=== PATIENT | female | born 1985 | race Hispanic/Latino ===

== ENCOUNTER 2017-07-30 22:45 | Emergency (ER) | payer SELFPAY ==
[2017-07-30] MEDS ORDERED: NA CHLORIDE 0.9% 1,000 ML ONE (23:30)
[2017-07-30] MEDS ORDERED: MORPHINE 4 MG/ML SYR ONE (23:30)
[2017-07-30] MEDS ORDERED: ONDANSETRON 4 MG/2 ML VIAL ONE (23:30)
[2017-07-30 23:47] LABS: Urine Blood NEGATIVE (NEG); Urine Glucose NEGATIVE (NEG); Urine Protein NEGATIVE (NEG)
[2017-07-30 23:48] LABS: Absolute Lymphocytes (CBC) 3.2 K/uL (0.7-4.9); Absolute Monocytes 0.5 K/uL (0.1-1.3); Absolute Neutrophil 3.8 K/uL (1.8-8.0); Basophils % 0.4 % (0-1.3); Eosinophils % 4.1 % (0-4.4); Hematocrit 42.4 % (36.0-45.0); Lymphocytes % 40.6 % (15.3-44.8); MCH 30.1 pg (27.0-35.0); MCV 87.8 fL (80-100); MPV 10.3 fL (7.6-11.3); Monocytes % 6.6 % (3.3-12.3); RBC Red Blood Cell Count 4.82 M/uL (3.86-4.86)
[2017-07-30] MEDS ORDERED: KETOROLAC 30 MG/ML INJ ONE (23:51)
[2017-07-31 00:06] LABS: ALT/SGPT 18 U/L (12-78); AST/SGOT 24 U/L (15-37); Albumin 4.2 g/dL (3.4-5.0); Alkaline Phosphatase 98 U/L (45-117); Amylase Level 62 U/L (25-115); BUN Blood Urea Nitrogen 9 mg/dL (7-18); Bicarbonate 28 mmol/L (21-32); Bilirubin Direct 0.1 mg/dL (0-0.2); Bilirubin Total 0.5 mg/dL (0.2-1.0); Glucose Level 88 mg/dL (74-106); Lipase 155 U/L (73-393); Potassium 3.9 mmol/L (3.5-5.1); Protein, Total 8.7 g/dL (6.4-8.2); Sodium Level 135 mmol/L (136-145)
[2017-07-31 00:22] LABS: Urine Bacteria <20 /HPF (<20); Urine Culture Reflex Order NOT NEEDED; Urine RBC <5 /HPF (NONE SEEN)
[2017-07-31] MEDS ORDERED: CYCLOBENZAPRINE 10 MG TAB ONE (01:54)
--- NOTE | 2017-07-31 01:55 | ER ---
Nurse's Notes [facility] Name: Eliz Amador Age: 31 yrs Sex: Female : 1985 Arrival Date: 07/30/2017 Time: 22:54 Bed 14 Private MD: Diagnosis: Unspecified abdominal pain Presentation: 07/30 23:00 Presenting complaint: Patient states: left upper back and rib pain started at 2100. pt ak1 denies SOB. pt took tylenol at 2130. Transition of care: patient was not received from another setting of care. Onset of symptoms was July 30, 2017. Risk Assessment: Do you want to hurt yourself or someone else? Patient reports no desire to harm self or others. Initial Sepsis Screen: Does the patient meet any 2 criteria? No. Patient's initial sepsis screen is negative. Does the patient have a suspected source of infection? No. Patient's initial sepsis screen is negative. Care prior to arrival: None. 23:00 Method Of Arrival: Ambulatory ak1 23:00 Acuity: EMANI 3 ak1 Triage Assessment: 23:02 General: Appears in no apparent distress. Behavior is calm, cooperative. Pain: ak1 Complains of pain in left upper back, left rib. EENT: No signs and/or symptoms were reported regarding the EENT system. Neuro: No deficits noted. Cardiovascular: No deficits noted. Respiratory: No deficits noted. GI: No signs and/or symptoms were reported involving the gastrointestinal system. : No signs and/or symptoms were reported regarding the genitourinary system. Derm: No signs and/or symptoms reported regarding the dermatologic system. Musculoskeletal: Range of motion: intact in all extremities. RN NEONATAL: 23:02 LMP N/A - IUD in place ak1 Historical: - Allergies: 23:02 No Known Allergies; ak1 - Home Meds: 23:02 None [Active]; ak1 - PMHx: 23:02 None; ak1 - PSHx: 23:02 Tonsillectomy; ak1 - Immunization history:: Adult Immunizations unknown. - Social history:: Smoking status: Patient/guardian denies using tobacco. - Ebola Screening: : No symptoms or risks identified at this time. Screenin:03 Abuse screen: Denies threats or abuse. Denies injuries from another. Nutritional ak1 screening: No deficits noted. Tuberculosis screening: No symptoms or risk factors identified. Fall Risk None identified. Assessment: 23:03 Reassessment: Patient appears in no apparent distress at this time. No changes from ak1 previously documented assessment. Patient is alert, oriented x 3, equal unlabored respirations, skin warm/dry/pink. see triage assessment. 07/31 01:06 Reassessment: Patient appears in no apparent distress at this time. No changes from ak1 previously documented assessment. Patient is alert, oriented x 3, equal unlabored respirations, skin warm/dry/pink. Patient states feeling better. Patient states symptoms have improved. Vital Signs: 07/30 23:02 BP 115 / 89; Pulse 85; Resp 18; Temp 98.3(O); Pulse Ox 99% on R/A; Weight 81.65 kg (R); ak1 Height 5 ft. 0 in. (152.40 cm) (R); Pain 7/10; 07/31 01:07 BP 107 / 81; Pulse 88; Resp 16; Temp 98.4; Pulse Ox 98% on R/A; Pain 3/10; ak1 07/30 23:02 Body Mass Index 35.15 (81.65 kg, 152.40 cm) ak1 ED Course: 07/30 22:54 Patient arrived in ED. al2 23:00 Janette Garay, RN is Primary Nurse. ak1 23:01 Triage completed. ak1 23:02 Arm band placed on Patient placed in an exam room, on a stretcher, on pulse oximetry, ak1 Patient notified of wait time. 23:03 Patient has correct armband on for positive identification. Bed in low position. Call ak1 light in reach. Side rails up X 1. Adult w/ patient. Pulse ox on. NIBP on. 23:14 Zach Lorenzo NP is PHCP. pm1 23:14 Aakash Orozco MD is Attending Physician. pm1 23:51 Initial lab(s) drawn, by ED staff, sent to lab. Urine collected: clean catch specimen. ak1 Inserted saline lock: 20 gauge in right antecubital area, using aseptic technique. ,using aseptic technique. placed by Jeremiah E. Blood collected. 23:52 No provider procedures requiring assistance completed. ak1 07/31 00:39 CT Abd/Pelvis - W/Contrast: IV contrast only In Process Unspecified. EDMS 00:48 CT completed. Patient tolerated procedure well. Patient moved to CT via wheelchair. Patient moved back from CT. 01:56 IV discontinued, intact, bleeding controlled, No redness/swelling at site. Pressure ak1 dressing applied. Administered Medications: 07/30 23:45 Not Given (Patient Refused; pt asked for something less potent): morphine 4 mg IVP once ak1 23:45 Drug: Zofran 4 mg Route: IVP; Site: right antecubital; ak1 07/31 00:49 Follow up: Response: No adverse reaction ak1 07/30 23:45 Drug: NS 0.9% 1000 ml Route: IV; Rate: 1000 ml; Site: right antecubital; ak1 07/31 00:49 Follow up: IV Status: Completed infusion ak1 07/30 23:51 Drug: TORadol 30 mg Route: IVP; Site: right antecubital; ak1 07/31 00:49 Follow up: Response: No adverse reaction ak1 01:55 Drug: Flexeril 10 mg Route: PO; ak1 01:56 Follow up: Response: No adverse reaction; Medication administered at discharge. ak1 Outcome: 01:46 Condition: good ak1 01:54 Discharge ordered by MD. pm1 01:59 Discharged to home ambulatory, with family. ak1 02:05 Discharge instructions given to patient, Instructed on discharge instructions, follow ak1 up and referral plans. no drinking with medication, no driving heavy equipment, medication usage, Demonstrated understanding of instructions, follow-up care, medications, Prescriptions given X 2. 02:05 Patient left the ED. ak1 Signatures: Dispatcher [employer] EDAR Kael Wesley Janette Garay RN RN ak1 Zach Lorenzo NP CHEMICAL LABORATORY ASSISTANT [email or web address] [email or web address] Corrections: (The following items were deleted from the chart) 07/30 23:52 23:00 Acuity: EMANI 4 ak1 ak1
--- NOTE | 2017-07-31 01:55 | EDPHYS ---
Physician Documentation [facility] Name: Eliz Amador Age: 31 yrs Sex: Female : 1985 Arrival Date: 07/30/2017 Time: 22:54 Bed 14 Private MD: ED Physician Aakash Orozco HPI: 07/31 00:00 This 31 yrs old Female presents to ER via Ambulatory with complaints of Back pm1 Pain. 00:00 The patient complains of pain in the right low back. Radiation to right upper quadrant. pm1 Onset: The symptoms/episode began/occurred today, at 21:00. Modifying factors: The symptoms are alleviated by nothing. the symptoms are aggravated by palpation/percussion. The patient presents with pain that is acute. Associated signs and symptoms: Pertinent negatives: abdominal pain, chest pain, fever, headache, nausea, vomiting, Diarrhea. CODING SUPPORT SPECIALIST: 07/30 23:02 LMP N/A - IUD in place ak1 Historical: - Allergies: 23:02 No Known Allergies; ak1 - Home Meds: 23:02 None [Active]; ak1 - PMHx: 23:02 None; ak1 - PSHx: 23:02 Tonsillectomy; ak1 - Immunization history:: Adult Immunizations unknown. - Social history:: Smoking status: Patient/guardian denies using tobacco. - Ebola Screening: : No symptoms or risks identified at this time. ROS: 07/31 00:00 Constitutional: Negative for fever, chills, and weight loss, Eyes: Negative for injury, pm1 pain, redness, and discharge, ENT: Negative for injury, pain, and discharge, Neck: Negative for injury, pain, and swelling, Cardiovascular: Negative for chest pain, palpitations, and edema, Respiratory: Negative for shortness of breath, cough, wheezing, and pleuritic chest pain. : Negative for injury, bleeding, discharge, and swelling, MS/Extremity: Negative for injury and deformity, Skin: Negative for injury, rash, and discoloration, Neuro: Negative for headache, weakness, numbness, tingling, and seizure. Abdomen/GI: Positive for abdominal pain, Negative for nausea, vomiting, and diarrhea. Back: Positive for flank pain, on the right. Exam: 00:00 Constitutional: This is a well developed, well nourished patient who is awake, alert, pm1 and in no acute distress. Head/Face: Normocephalic, atraumatic. Neck: Trachea midline, no thyromegaly or masses palpated, and no cervical lymphadenopathy. Supple, full range of motion without nuchal rigidity, or vertebral point tenderness. No Meningismus. Chest/axilla: Normal chest wall appearance and motion. Nontender with no deformity. No lesions are appreciated. Cardiovascular: Regular rate and rhythm with a normal S1 and S2. No gallops, murmurs, or rubs. Normal PMI, no JVD. No pulse deficits. Respiratory: Lungs have equal breath sounds bilaterally, clear to auscultation and percussion. No rales, rhonchi or wheezes noted. No increased work of breathing, no retractions or nasal flaring. 00:00 Skin: Warm, dry with normal turgor. Normal color with no rashes, no lesions, and no evidence of cellulitis. MS/ Extremity: Pulses equal, no cyanosis. Neurovascular intact. Full, normal range of motion. Neuro: Awake and alert, GCS 15, oriented to person, place, time, and situation. Cranial nerves II-XII grossly intact. Motor strength 5/5 in all extremities. Sensory grossly intact. Cerebellar exam normal. Normal gait. 00:00 Abdomen/GI: Inspection: abdomen appears normal, Bowel sounds: normal, Palpation: abdomen is soft and non-tender, mass, is not appreciated, rebound tenderness, is not appreciated. 00:00 Back: normal spinal alignment noted, muscle spasm, is appreciated in the right mid back. 03:37 Neuro: Orientation: is normal, Mentation: is normal, Memory: is normal, Motor: moves pm1 all fours, Sensation: is normal, no obvious gross deficits. Vital Signs: 07/30 23:02 BP 115 / 89; Pulse 85; Resp 18; Temp 98.3(O); Pulse Ox 99% on R/A; Weight 81.65 kg (R); ak1 Height 5 ft. 0 in. (152.40 cm) (R); Pain 7/10; 07/31 01:07 BP 107 / 81; Pulse 88; Resp 16; Temp 98.4; Pulse Ox 98% on R/A; Pain 3/10; ak1 07/30 23:02 Body Mass Index 35.15 (81.65 kg, 152.40 cm) ak1 MDM: 07/30 23:16 Patient medically screened. [facility] 07/31 01:51 Differential diagnosis: nephrolithiasis, pyelonephritis, UTI, pancreatitis, pm1 appendicitis Cholelithiasis Peptic Ulcer Perforated Ulcer. 01:51 Data reviewed: vital signs. Data interpreted: Pulse oximetry: on room air is 98 %. pm1 Interpretation: normal. Counseling: I had a detailed discussion with the patient and/or guardian regarding: the historical points, exam findings, and any diagnostic results supporting the discharge/admit diagnosis, lab results, radiology results, the need for outpatient follow up, to return to the emergency department if symptoms worsen or persist or if there are any questions or concerns that arise at home. 07/30 23:21 Order name: Amylase, Serum; Complete Time: 00:29 pm1 07/30 23:21 Order name: Basic Metabolic Panel; Complete Time: 00:29 pm1 07/30 23:21 Order name: CBC with Diff; Complete Time: 00:29 pm07/30 23:21 Order name: Creatinine for Radiology; Complete Time: 00:29 pm07/30 23:21 Order name: Hepatic Function; Complete Time: 00:29 pm1 07/30 23:21 Order name: Lipase; Complete Time: 00:29 pm07/30 23:21 Order name: Urine Microscopic Only; Complete Time: 00:29 pm1 07/30 23:21 Order name: CT Abd/Pelvis - W/Contrast: IV contrast only pm1 07/30 23:28 Order name: Urine Dipstick--Ancillary (enter results); Complete Time: 00:29 eb 07/30 23:28 Order name: Urine --Ancillary (enter results); Complete Time: 00:29 eb 07/30 23:21 Order name: Urine Test (obtain specimen); Complete Time: 23:23 pm07/30 23:21 Order name: IV Saline Lock; Complete Time: 23:45 pm1 07/30 23:21 Order name: Labs collected and sent; Complete Time: 23:45 pm1 07/30 23:21 Order name: Urine Dipstick-Ancillary (obtain specimen); Complete Time: 23:23 pm1 Administered Medications: 07/30 23:45 Not Given (Patient Refused; pt asked for something less potent): morphine 4 mg IVP once ak1 23:45 Drug: Zofran 4 mg Route: IVP; Site: right antecubital; ak1 07/31 00:49 Follow up: Response: No adverse reaction ak1 07/30 23:45 Drug: NS 0.9% 1000 ml Route: IV; Rate: 1000 ml; Site: right antecubital; ak1 07/31 00:49 Follow up: IV Status: Completed infusion ak1 07/30 23:51 Drug: TORadol 30 mg Route: IVP; Site: right antecubital; ak1 07/31 00:49 Follow up: Response: No adverse reaction ak1 01:55 Drug: Flexeril 10 mg Route: PO; ak1 01:56 Follow up: Response: No adverse reaction; Medication administered at discharge. ak1 Disposition: 15:37 Co-signature as Attending Physician, Aakash Orozco MD I agree with the assessment and hieu plan of care. Disposition: 07/31/17 01:54 Discharged to Home. Impression: Unspecified abdominal pain. - Condition is Stable. - Discharge Instructions: Abdominal Pain, Adult, Flank Pain. - Prescriptions for Naprosyn 500 mg Oral Tablet - take 1 tablet by ORAL route 2 times per day take with food; 30 tablet. Cyclobenzaprine 10 mg Oral Tablet - take 1 tablet by ORAL route every 8 hours As needed; 30 tablet. - Medication Reconciliation Form, Thank You Letter form. - Follow up: Emergency Department; When: As needed; Reason: Worsening of condition. Follow up: Private Physician; When: 2 - 3 days; Reason: Recheck today's complaints, Continuance of care, Re-evaluation by your physician. - Problem is new. - Symptoms have improved. Signatures: Dispatcher [employer] [facility] Aakash Orozco MD MD cha Krenek, Amber, RN RN ak1 Zach Lorenzo, DIRECTOR OF CONSERVATION DIRECTOR OF CONSERVATION pm1 Corrections: (The following items were deleted from the chart) 01:56 01:54 07/31/2017 01:54 Discharged to Home. Impression: Upper abdominal pain, pm1 unspecified. Condition is Stable. Forms are Medication Reconciliation Form, Thank You Letter, Antibiotic Education, Prescription Opioid Use. Follow up: Emergency Department; When: As needed; Reason: Worsening of condition. Follow up: Private Physician; When: 2 - 3 days; Reason: Recheck today's complaints, Continuance of care, Re-evaluation by your physician. Problem is new. Symptoms have improved. pm1 01:56 01:56 07/31/2017 01:54 Discharged to Home. Impression: Low back pain. Condition is pm1 Stable. Discharge Instructions: Flank Pain. Prescriptions for Naprosyn 500 mg Oral Tablet - take 1 tablet by ORAL route 2 times per day take with food; 30 tablet, Cyclobenzaprine 10 mg Oral Tablet - take 1 tablet by ORAL route every 8 hours As needed; 30 tablet. and Forms are Medication Reconciliation Form, Thank You Letter. Follow up: Emergency Department; When: As needed; Reason: Worsening of condition. Follow up: Private Physician; When: 2 - 3 days; Reason: Recheck today's complaints, Continuance of care, Re-evaluation by your physician. Problem is new. Symptoms have improved. pm1 02:05 01:56 07/31/2017 01:54 Discharged to Home. Impression: Unspecified abdominal pain. ak1 Condition is Stable. Discharge Instructions: Flank Pain. Prescriptions for Naprosyn 500 mg Oral Tablet - take 1 tablet by ORAL route 2 times per day take with food; 30 tablet, Cyclobenzaprine 10 mg Oral Tablet - take 1 tablet by ORAL route every 8 hours As needed; 30 tablet. and Forms are Medication Reconciliation Form, Thank You Letter. Follow up: Emergency Department; When: As needed; Reason: Worsening of condition. Follow up: Private Physician; When: 2 - 3 days; Reason: Recheck today's complaints, Continuance of care, Re-evaluation by your physician. Problem is new. Symptoms have improved. pm1
--- NOTE | 2017-07-31 08:28 | RAD REPORT ---
EXAM DESCRIPTION: CTAbdomen Pelvis W Contrast - 07/31/2017 3:29 am CLINICAL HISTORY: Abdominal pain. ABD PAIN COMPARISON: No comparisons TECHNIQUE: Biphasic CT imaging of the abdomen and pelvis was performed with 100 ml non-ionic IV cont rast. All CT scans are performed using dose optimization technique as appropriate and may include automated exposure control or mA/KV adjustment according to patient size. FINDINGS: The lung bases are clear. The liver, spleen, pancreas, adrenal glands and kidneys are within normal limits. No bowel obstruction, free air, intra-abdominal free fluid or abscess. The appendix is normal. No e vidence of significant lymphadenopathy. No suspicious bony findings. Trace pelvic free fluid. IUD appears malpositioned with one of the limbs penetrating the fundus of the uterus. IMPRESSION: Malpositioned IUD with the left limb appearing to penetrate the uterine fundus.
== END 2017-07-31 02:05 | disposition home or self-care (01) ==
LOC: ER 22:45
DX: R10.9 Unspecified abdominal pain (principal)
CPT/HCPCS: 36415; 74177; 80048; 80076; 81003; 81015; 81025; 82150; 83690; 85025; 96361; 96374; 96375; 99284; J2405; J7030; Q9967

== ENCOUNTER 2017-10-29 16:31 | Emergency (ER) | payer SELFPAY ==
[2017-10-29 17:35] LABS: Absolute Lymphocytes (CBC) 2.9 K/uL (0.7-4.9); Absolute Monocytes 0.4 K/uL (0.1-1.3); Absolute Neutrophil 4.8 K/uL (1.8-8.0); Basophils % 0.3 % (0-1.3); Eosinophils % 1.4 % (0-4.4); Hematocrit 42.1 % (36.0-45.0); Lymphocytes % 35.5 % (15.3-44.8); MCH 30.6 pg (27.0-35.0); MCV 89.5 fL (80-100); MPV 10.8 fL (7.6-11.3); Monocytes % 5.3 % (3.3-12.3); RBC Red Blood Cell Count 4.71 M/uL (3.86-4.86)
[2017-10-29] MEDS ORDERED: DIPHENHYDRAMINE 25 MG TAB/CAP ONE ×2 (17:45→17:59)
[2017-10-29] MEDS ORDERED: METHYLPREDNISOLONE 125 MG INJ ONE (17:45)
[2017-10-29 17:46] LABS: Urine Blood TRACE (NEG); Urine Glucose NEGATIVE (NEG); Urine Protein NEGATIVE (NEG); Urine Specific Gravity >1.030 (1.005-1.030); Urine pH 5.5 (5.0-7.0)
[2017-10-29 17:51] LABS: ALT/SGPT 13 U/L (12-78); AST/SGOT 16 U/L (15-37); Albumin 4.1 g/dL (3.4-5.0); Alkaline Phosphatase 103 U/L (45-117); BUN Blood Urea Nitrogen 9 mg/dL (7-18); Bicarbonate 23 mmol/L (21-32); Bilirubin Direct 0.1 mg/dL (0-0.2); Bilirubin Total 0.5 mg/dL (0.2-1.0); Glucose Level 85 mg/dL (74-106); Lipase 183 U/L (73-393); Potassium 3.7 mmol/L (3.5-5.1); Protein, Total 8.5 g/dL (6.4-8.2); Sodium Level 138 mmol/L (136-145)
--- NOTE | 2017-10-29 17:56 | RAD REPORT ---
EXAM DESCRIPTION: CTAbdomen Pelvis W Contrast - 10/29/2017 5:47 pm CLINICAL HISTORY: Abdominal pain. Rectal bleeding COMPARISON: Abdomen Pelvis W Contrast dated 07/31/2017 TECHNIQUE: Biphasic CT imaging of the abdomen and pelvis was performed with 100 ml non-ionic IV cont rast. All CT scans are performed using dose optimization technique as appropriate and may include automated exposure control or mA/KV adjustment according to patient size. FINDINGS: The lung bases are clear. The liver, spleen, pancreas, adrenal glands and kidneys are within normal limits. No bowel obstruction, free air, intra-abdominal free fluid or abscess. The appendix is not identifie d as a discrete structure, however, no secondary findings of appendicitis are identified. No eviden ce of significant lymphadenopathy. No suspicious bony findings. Trace pelvic free fluid is seen with mild positioned IUD again noted, un changed since prior study. IMPRESSION: No acute intra-abdominal or pelvic finding. Malpositioned IUD again noted without signif icant change since prior study.
[2017-10-29] MEDS ORDERED: hydrOXYzine HCl 50 MG/ML VIAL IM ONE ×2 (18:00)
[2017-10-29] MEDS ORDERED: NA CHLORIDE 0.9% 1,000 ML ONE (18:11)
[2017-10-29] MEDS ORDERED: FAMOTIDINE 20 MG/2 ML VIAL IV ONE (18:11)
[2017-10-29] MEDS ORDERED: EPINEPHRINE/PF 1 MG/ML AMP ONE (18:11)
--- NOTE | 2017-10-29 19:48 | EDPHYS ---
Physician Documentation [facility] Name: Eliz Amador Age: 31 yrs Sex: Female : 1985 Arrival Date: 10/29/2017 Time: 16:33 Bed 13 Private MD: None, None ED Physician Yefri Villafuerte HPI: 10/29 17:04 This 31 yrs old Female presents to ER via Ambulatory with complaints of Rectal jr8 Bleeding. 17:04 The patient presents to the emergency department with bleeding from the rectum/anus, jr8 that is mild. Onset: The symptoms/episode began/occurred acutely, today, yesterday. Context: the patient has no known special context relating to the rectal area complaint(s). Modifying factors: The symptoms are alleviated by nothing, The symptoms are aggravated by bowel movement. Associate signs and symptoms: The patient has no apparent associated signs or symptoms. The patient has not experienced similar symptoms in the past. The patient has not recently seen a physician. 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 - Social history:: Smoking status: Patient/guardian denies using tobacco. - Ebola Screening: : Patient negative for fever greater than or equal to 101.5 degrees Fahrenheit, and additional compatible Ebola Virus Disease symptoms Patient denies exposure to infectious person Patient denies travel to an Ebola-affected area in the 21 days before illness onset No symptoms or risks identified at this time. ROS: 17:04 Eyes: Negative for injury, pain, redness, and discharge, ENT: Negative for injury, jr8 pain, and discharge, Neck: Negative for injury, pain, and swelling, Cardiovascular: Negative for chest pain, palpitations, and edema, Respiratory: Negative for shortness of breath, cough, wheezing, and pleuritic chest pain, Back: Negative for injury and pain, MS/Extremity: Negative for injury and deformity, Skin: Negative for injury, rash, and discoloration, Neuro: Negative for headache, weakness, numbness, tingling, and seizure. 17:04 Abdomen/GI: Positive for rectal bleeding, Negative for abdominal pain, nausea, vomiting, and diarrhea, abdominal cramps, abdominal distension, anorexia, dysphagia, hematemesis, black/tarry stool, rectal pain, bowel incontinence, flatulence. Exam: 17:04 Eyes: Pupils equal round and reactive to light, extra-ocular motions intact. Lids and jr8 lashes normal. Conjunctiva and sclera are non-icteric and not injected. Cornea within normal limits. Periorbital areas with no swelling, redness, or edema. ENT: Nares patent. No nasal discharge, no septal abnormalities noted. Tympanic membranes are normal and external auditory canals are clear. Oropharynx with no redness, swelling, or masses, exudates, or evidence of obstruction, uvula midline. Mucous membranes moist. Neck: Trachea midline, no thyromegaly or masses palpated, and no cervical lymphadenopathy. Supple, full range of motion without nuchal rigidity, or vertebral point tenderness. No Meningismus. Cardiovascular: Regular rate and rhythm with a normal S1 and S2. No gallops, murmurs, or rubs. Normal PMI, no JVD. No pulse deficits. Respiratory: Lungs have equal breath sounds bilaterally, clear to auscultation and percussion. No rales, rhonchi or wheezes noted. No increased work of breathing, no retractions or nasal flaring. Back: No spinal tenderness. No costovertebral tenderness. Full range of motion. Skin: Warm, dry with normal turgor. Normal color with no rashes, no lesions, and no evidence of cellulitis. MS/ Extremity: Pulses equal, no cyanosis. Neurovascular intact. Full, normal range of motion. Neuro: Awake and alert, GCS 15, oriented to person, place, time, and situation. Cranial nerves II-XII grossly intact. Motor strength 5/5 in all extremities. Sensory grossly intact. Cerebellar exam normal. Normal gait. 17:04 Abdomen/GI: Inspection: abdomen appears normal, Bowel sounds: active, all quadrants, Palpation: soft, in all quadrants, mild abdominal tenderness, in the left lower quadrant, mass, is not appreciated, rebound tenderness, is not appreciated, voluntary guarding, is not appreciated, involuntary guarding, is not appreciated, no appreciated organomegaly, Rectal exam: rectal tone normal, Stool: brown, guaiac negative, hemorrhoid(s), external, without bleeding, without inflammation, without thrombosis, without pain, mass, that is small, without tenderness, posterior rectal region. Boggy feeling , tenderness, is not appreciated, the exam is chaperoned by the nurse, Indicators: McBurney's point is not tender, Gonzalez's sign is negative, Liver: no appreciated palpable abnormalities, tenderness. Vital Signs: 16:37 BP 107 / 63; Pulse 94; Resp 17; Temp 98.6; Pulse Ox 98% on R/A; Weight 81.65 kg; Height aj 5 ft. 0 in. (152.40 cm); 17:11 BP 100 / 54; Pulse 84; Resp 14; Pulse Ox 99% on R/A; Pain 0/10; ch 17:45 BP 138 / 86; Pulse 92; Resp 24; Pulse Ox 98% on R/A; Pain 0/10; ch 17:55 BP 148 / 98; Pulse 126; Resp 26; Pulse Ox 99% on R/A; ch 18:10 BP 135 / 94; Pulse 122; Resp 26; Pulse Ox 98% on R/A; ch 18:37 BP 125 / 91; Pulse 124; Resp 26; Pulse Ox 99% on R/A; Pain 0/10; ch 18:45 BP 131 / 94; Pulse 123; Resp 21; Pulse Ox 99% on R/A; Pain 0/10; ch 19:25 BP 112 / 76; Pulse 110; Resp 20; Pulse Ox 99% ; ea 19:46 Temp 98.9(O); ea 20:00 BP 101 / 69; Pulse 96; Resp 18; Pulse Ox 99% on R/A; ea 16:37 Body Mass Index 35.15 (81.65 kg, 152.40 cm) aj MDM: 16:44 Patient medically screened. jr8 19:47 Data reviewed: vital signs, nurses notes. Data interpreted: Pulse oximetry: on room air snw is 99 %. Interpretation: normal. Counseling: I had a detailed discussion with the patient and/or guardian regarding: the historical points, exam findings, and any diagnostic results supporting the discharge/admit diagnosis, lab results, radiology results, the need for outpatient follow up, to return to the emergency department if symptoms worsen or persist or if there are any questions or concerns that arise at home. Response to treatment: the patient's symptoms have markedly improved after treatment. Special discussion: Based on the patient's Hx, exam, and Dx evaluation, there is no indication for emergent surgery or inpatient Tx. It is understood by the patient/guardian that if the Sx's persist or worsen they need to return immediately for re-evaluation. Based on the history and exam findings, there is no indication for further emergent testing or inpatient evaluation. I discussed with the patient/guardian the need to see the tape recorder mechanic for further evaluation of the symptoms. I discussed with the patient/guardian the need to see the primary care provider for further evaluation of the symptoms. 10/29 16:58 Order name: Basic Metabolic Panel [facility] 10/29 16:58 Order name: CBC with Diff 10/29 16:58 Order name: Creatinine for Radiology 10/29 16:58 Order name: Hepatic Function [facility] 10/29 16:58 Order name: Lipase [facility] 10/29 17:44 Order name: CBC with Automated Diff; Complete Time: 18:05 EDMN 10/29 17:00 Order name: CT Abd/Pelvis - W/Contrast [facility] 10/29 17:47 Order name: Urine Dipstick-Ancillary; Complete Time: 18:05 EDMN 10/29 17:54 Order name: Basic Metabolic Panel; Complete Time: 18:05 [facility] 10/29 17:54 Order name: Liver (Hepatic) Function; Complete Time: 18:05 [facility] 10/29 17:54 Order name: Lipase; Complete Time: 18:05 [facility] 10/29 17:57 Order name: CT; Complete Time: 18:05 [facility] 10/29 16:58 Order name: IV Saline Lock; Complete Time: 17:15 [facility] 10/29 16:58 Order name: Labs collected and sent; Complete Time: 17:15 [facility] 10/29 19:10 Order name: VS Recheck; Complete Time: 19:28 snw Administered Medications: 17:50 Drug: SOLU-Medrol 125 mg Route: IVP; Site: right forearm; ch 18:46 Follow up: Response: No adverse reaction; Marked relief of symptoms ch 17:50 Drug: Benadryl 50 mg Route: PO; ch 18:46 Follow up: Response: No adverse reaction; Marked relief of symptoms ch 17:50 Drug: NS 0.9% 1000 ml Route: IV; Rate: 1000 ml; Site: right forearm; 18:45 Follow up: IV Status: Completed infusion; IV Intake: 1000ml ch 18:10 Drug: Pepcid 20 mg Route: IVP; Site: right forearm; 18:46 Follow up: Response: No adverse reaction ch 18:15 Drug: EPINEPHrine 1mg/mL 1:1,000 0.3 mg Route: IM; Site: right vastus lateralis; 18:46 Follow up: Response: No adverse reaction; Marked relief of symptoms Disposition: 10/29/17 19:47 Discharged to Home. Impression: rectal bleeding, Allergy status to other drugs, medicaments and biological substances status - iv contrast. - Condition is Stable. - Discharge Instructions: Drug Allergy, Rectal Bleeding. - Prescriptions for Proctofoam HC 1- 1 % Rectal foam - insert 1 applicatorful by RECTAL route 3 times per day; 1 Cartridge. Zyrtec 10 mg Oral Tablet - take 1 tablet by ORAL route once daily As needed; 20 tablet. Pepcid 20 mg Oral Tablet - take 1 tablet by ORAL route once daily; 20 tablet. - Medication Reconciliation Form, Thank You Letter, Antibiotic Education, Prescription Opioid Use form. - Follow up: Emergency Department; When: As needed; Reason: Worsening of condition. Follow up: Private Physician; When: 2 - 3 days; Reason: Recheck today's complaints, Continuance of care, Re-evaluation by your physician. - Problem is new. - Symptoms are resolved. Signatures: Dispatcher [employer] EDMS Ora Mcnamara RN RN ch Myers, Amanda, RN RN aj Therrien, Shelly, AUTOMOTIVE DISMANTLER-C AUTOMOTIVE DISMANTLER-Csnw Myles Butler PA PA jr8 Consuelo Chan RN RN ea Corrections: (The following items were deleted from the chart) 20:14 19:47 10/29/2017 19:47 Discharged to Home. Impression: rectal bleeding; Allergy status ea to other drugs, medicaments and biological substances status - iv contrast. Condition is Stable. Discharge Instructions: Drug Allergy, Rectal Bleeding. Prescriptions for Proctofoam HC 1-1 % Rectal foam - insert 1 applicatorful by RECTAL route 3 times per day; 1 Cartridge, Zyrtec 10 mg Oral Tablet - take 1 tablet by ORAL route once daily As needed; 20 tablet, Pepcid 20 mg Oral Tablet - take 1 tablet by ORAL route once daily; 20 tablet. and Forms are Medication Reconciliation Form, Thank You Letter, Antibiotic Education, Prescription Opioid Use. Follow up: Emergency Department; When: As needed; Reason: Worsening of condition. Follow up: Private Physician; When: 2 - 3 days; Reason: Recheck today's complaints, Continuance of care, Re-evaluation by your physician. Problem is new. Symptoms are resolved. snw
--- NOTE | 2017-10-29 19:48 | ER ---
Nurse's Notes [facility] Name: Eliz Amador Age: 31 yrs Sex: Female : 1985 Arrival Date: 10/29/2017 Time: 16:33 Bed 13 Private MD: None, None Diagnosis: rectal bleeding;Allergy status to other drugs, medicaments and biological substances status-iv contrast Presentation: 10/29 16:36 Presenting complaint: Patient states: Dark red blood from rectum that started 2 days aj ago. Transition of care: patient was not received from another setting of care. Onset of symptoms was October 27, 2017. Risk Assessment: Do you want to hurt yourself or someone else? Patient reports no desire to harm self or others. Initial Sepsis Screen: Does the patient meet any 2 criteria? No. Patient's initial sepsis screen is negative. Does the patient have a suspected source of infection? No. Patient's initial sepsis screen is negative. Care prior to arrival: None. 16:36 Method Of Arrival: Ambulatory 16:36 Acuity: EMANI 3 aj Triage Assessment: 16:37 General: Appears in no apparent distress. comfortable, Behavior is calm, cooperative, aj appropriate for age. Pain: Denies pain. Neuro: Level of Consciousness is awake, alert, obeys commands, Oriented to person, place, time, situation, Appropriate for age. Respiratory: Airway is patent Respiratory effort is even, unlabored, Respiratory pattern is regular, symmetrical. GI: Reports Rectal bleeding. Derm: Skin is pink, warm \T\ dry. normal. 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 - Social history:: Smoking status: Patient/guardian denies using tobacco. - Ebola Screening: : Patient negative for fever greater than or equal to 101.5 degrees Fahrenheit, and additional compatible Ebola Virus Disease symptoms Patient denies exposure to infectious person Patient denies travel to an Ebola-affected area in the 21 days before illness onset No symptoms or risks identified at this time. Screenin:11 Abuse screen: Denies threats or abuse. Denies injuries from another. Nutritional ch screening: No deficits noted. Tuberculosis screening: No symptoms or risk factors identified. Fall Risk None identified. Assessment: 17:11 General: Appears in no apparent distress. comfortable, Behavior is calm, cooperative, ch appropriate for age. Pain: Denies pain. Neuro: Level of Consciousness is awake, alert, obeys commands, Oriented to person, place, time, situation. Respiratory: Airway is patent Respiratory effort is even, unlabored. GI: Abdomen is round non-distended, Bowel sounds present X 4 quads. Abd is soft X 4 quads Reports rectal bleeding. : No signs and/or symptoms were reported regarding the genitourinary system. Derm: Skin is pink, warm \T\ dry. 17:40 Reassessment: Patient appears in no apparent distress at this time. Patient and/or ch family updated on plan of care and expected duration. Pain level reassessed. pt in ct states she cannot breathe, c/o feeling light headed, dizzy and SOB. states she cannot swallow. code yellow called by ct. erp and staff respond to ct room, pt is aaox4, VS stable, no hives or itching reported. pt states she feels a little better. 17:50 Reassessment: pt back in room, states she feels like she can not swallow or breathe. ch Myles at bedside, myself at bedside. pt medicated per orders. pt still states she feels like she cannot swallow, like something is stuck in her throat. pt medicated per orders. I Stay at bedside with pt till she says she feels better. 18:30 Reassessment: Patient appears in no apparent distress at this time. Patient and/or ch family updated on plan of care and expected duration. Pain level reassessed. pt no longer one on one Patient states feeling better. Patient states symptoms have improved. 18:44 Reassessment: Patient appears in no apparent distress at this time. Patient and/or ch family updated on plan of care and expected duration. Pain level reassessed. pt states she feels like she can breathe better. Patient states feeling better. Patient states symptoms have improved. 19:26 General: Appears in no apparent distress. Behavior is calm, cooperative, appropriate ea for age. Pain: Denies pain. Neuro: Level of Consciousness is awake, alert, obeys commands, Oriented to person, place, time, situation. Cardiovascular: Heart tones S1 S2 present. Respiratory: Airway is patent Respiratory effort is even, unlabored, Respiratory pattern is regular, symmetrical. GI: Abdomen is non-distended, Bowel sounds present X 4 quads. Abd is soft and non tender X 4 quads. Derm: Skin is pink, warm \T\ dry. 20:10 Reassessment: Patient and/or family updated on plan of care and expected duration. Pain ea level reassessed. Patient is alert, oriented x 3, equal unlabored respirations, skin warm/dry/pink. Discharge instructions given to patient, verbalized the understanding of instructions Patient states feeling better. Patient states symptoms have improved. Vital Signs: 16:37 BP 107 / 63; Pulse 94; Resp 17; Temp 98.6; Pulse Ox 98% on R/A; Weight 81.65 kg; Height aj 5 ft. 0 in. (152.40 cm); 17:11 BP 100 / 54; Pulse 84; Resp 14; Pulse Ox 99% on R/A; Pain 0/10; ch 17:45 BP 138 / 86; Pulse 92; Resp 24; Pulse Ox 98% on R/A; Pain 0/10; ch 17:55 BP 148 / 98; Pulse 126; Resp 26; Pulse Ox 99% on R/A; ch 18:10 BP 135 / 94; Pulse 122; Resp 26; Pulse Ox 98% on R/A; ch 18:37 BP 125 / 91; Pulse 124; Resp 26; Pulse Ox 99% on R/A; Pain 0/10; ch 18:45 BP 131 / 94; Pulse 123; Resp 21; Pulse Ox 99% on R/A; Pain 0/10; ch 19:25 BP 112 / 76; Pulse 110; Resp 20; Pulse Ox 99% ; ea 19:46 Temp 98.9(O); ea 20:00 BP 101 / 69; Pulse 96; Resp 18; Pulse Ox 99% on R/A; ea 16:37 Body Mass Index 35.15 (81.65 kg, 152.40 cm) aj ED Course: 16:33 Patient arrived in ED. mr 16:33 None, None is Private Physician. mr 16:36 Triage completed. aj 16:37 Arm band placed on right wrist. Patient placed in an exam room. aj 16:43 Ora Mcnamara, RN is Primary Nurse. ch 16:44 Myles Butler PA is PHCP. jr8 16:44 Yefri Villafuerte MD is Attending Physician. jr8 17:11 No apparent distress. Resting quietly. ch 17:11 Patient has correct armband on for positive identification. Placed in gown. Bed in low ch position. Call light in reach. Side rails up X2. Adult w/ patient. Pulse ox on. NIBP on. Warm blanket given. 17:11 Served as a mental health aide during rectal exam. Inserted saline lock: 20 gauge in right ch forearm, using aseptic technique. Blood collected. 19:06 Report given to Consuelo. ch 19:06 Inserted saline lock: 20 gauge in left antecubital area, using aseptic technique. Blood ch collected. 19:13 PHCP role handed off by Myles Butler PA snw 19:13 Elham Gil FNP-C is PHCP. snw 20:00 IV discontinued, intact, bleeding controlled, No redness/swelling at site. Pressure ea dressing applied. Administered Medications: 17:50 Drug: SOLU-Medrol 125 mg Route: IVP; Site: right forearm; ch 18:46 Follow up: Response: No adverse reaction; Marked relief of symptoms ch 17:50 Drug: Benadryl 50 mg Route: PO; ch 18:46 Follow up: Response: No adverse reaction; Marked relief of symptoms ch 17:50 Drug: NS 0.9% 1000 ml Route: IV; Rate: 1000 ml; Site: right forearm; ch 18:45 Follow up: IV Status: Completed infusion; IV Intake: 1000ml ch 18:10 Drug: Pepcid 20 mg Route: IVP; Site: right forearm; ch 18:46 Follow up: Response: No adverse reaction ch 18:15 Drug: EPINEPHrine 1mg/mL 1:1,000 0.3 mg Route: IM; Site: right vastus lateralis; ch 18:46 Follow up: Response: No adverse reaction; Marked relief of symptoms ch Intake: 18:45 IV: 1000ml; Total: 1000ml. ch Outcome: 19:47 Discharge ordered by . snw 20:10 Condition: improved ea 20:10 Discharge instructions given to patient, Instructed on discharge instructions, follow up and referral plans. medication usage, Demonstrated understanding of instructions, follow-up care, medications, Prescriptions given X 3. 20:12 Discharged to home ambulatory, with family. ea 20:14 Patient left the ED. ea Signatures: Ora Mcnamara RN RN ch Myers, Amanda, RN RN Elham Russell, CULTURIST-C CULTURIST-Csnw Thomas Trinidad mr Carrie, Myles, PA PA jr8 Consuelo Chan RN RN ea Corrections: (The following items were deleted from the chart) 18:33 18:02 Reassessment: Patient appears in no apparent distress at this time. Patient ch and/or family updated on plan of care and expected duration. Pain level reassessed. pt in ct states she cannot breathe, c/o feeling light headed, dizzy and SOB. states she cannot swallow. code yellow called. ch
== END 2017-10-29 20:14 | disposition home or self-care (01) ==
LOC: ER 16:31
DX: K62.5 Hemorrhage of anus and rectum (principal); Z91.041 Radiographic dye allergy status
CPT/HCPCS: 36415; 74177; 80048; 80076; 81003; 83690; 85025; J0171; J2930; J3410; J7030; Q9967

== ENCOUNTER 2018-01-16 13:38 | Emergency (ER) | payer SELFPAY ==
--- NOTE | 2018-01-16 14:59 | RAD REPORT ---
EXAM DESCRIPTION: RAD - Chest Single View - 01/16/2018 2:53 pm CLINICAL HISTORY: CHEST PAIN Chest pain. COMPARISON: No comparisons FINDINGS: Portable technique limits examination quality. The lungs are grossly clear. The heart is normal in size. No displaced fractures. IMPRESSION: No acute intrathoracic process suspected.
[2018-01-16 15:00] LABS: Absolute Lymphocytes (CBC) 2.3 K/uL (0.7-4.9); Absolute Monocytes 0.5 K/uL (0.1-1.3); Absolute Neutrophil 5.2 K/uL (1.8-8.0); Basophils % 0.3 % (0-1.3); Hematocrit 40.7 % (36.0-45.0); Lymphocytes % 28.7 % (15.3-44.8); MCH 31.2 pg (27.0-35.0); MCV 88.9 fL (80-100); MPV 11.2 fL (7.6-11.3); Monocytes % 5.7 % (3.3-12.3); RBC Red Blood Cell Count 4.58 M/uL (3.86-4.86)
[2018-01-16 15:01] LABS: Protime INR 1.06
--- NOTE | 2018-01-16 15:10 | EKG ---
Test Date: 2018-01-16 Test Time: 13:51:57 Sheet Tester: DIEGO MEASUREMENT RESULTS: Intervals: Rate: 89 NE: 146 QRSD: 70 QT: 352 QTc: 428 Plover: P: 42 NE: 146 QRS: 58 T: 52 INTERPRETIVE STATEMENTS: Normal sinus rhythm Cannot rule out Anterior infarct, age undetermined Abnormal ECG No previous ECG available for comparison Electronically Signed On 01-16-18 15:10:16 SUPERVISOR SAWMILL by Jay Garcia
[2018-01-16 15:16] LABS: ALT/SGPT 13 U/L (12-78); AST/SGOT 12 U/L (15-37); Alkaline Phosphatase 97 U/L (45-117); BUN Blood Urea Nitrogen 9 mg/dL (7-18); Bicarbonate 25 mmol/L (21-32); Bilirubin Direct 0.1 mg/dL (0-0.2); Bilirubin Total 0.4 mg/dL (0.2-1.0); Glucose Level 90 mg/dL (74-106); Magnesium 2.3 mg/dL (1.8-2.4); NT PRO-BNP 18 pg/mL (<125); Protein, Total 8.4 g/dL (6.4-8.2); Sodium Level 141 mmol/L (136-145); Troponin (Emerg Dept Use Only) < 0.02 ng/mL (0.0-0.045)
[2018-01-16] MEDS ORDERED: ONDANSETRON 4 MG/2 ML VIAL ONE (15:25)
[2018-01-16] MEDS ORDERED: MORPHINE 4 MG/ML SYR ONE (15:25)
[2018-01-16 16:57] LABS: Urine Blood NEGATIVE (NEG); Urine Glucose NEGATIVE (NEG); Urine Protein NEGATIVE (NEG)
[2018-01-16] MEDS ORDERED: KETOROLAC 30 MG/ML INJ ONE (19:01)
--- NOTE | 2018-01-16 19:38 | ER ---
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 Transition of care: patient was not received from another setting of care. Onset of symptoms was January 16, 2018. Risk Assessment: Do you want to hurt yourself or someone else? Patient reports no desire to harm self or others. Care prior to arrival: None. 13:46 Method Of Arrival: Ambulatory hb 13:46 Acuity: EMANI 3 hb 13:47 Note EKG paged to triage 1345. hb 19:39 Initial Sepsis Screen: Does the patient meet any 2 criteria? No. Patient's initial ea sepsis screen is negative. Does the patient have a suspected source of infection? No. Patient's initial sepsis screen is negative. 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 - Social history:: Smoking status: Patient uses tobacco products. - Ebola Screening: : No symptoms or risks identified at this time. Screenin:50 Abuse screen: Denies threats or abuse. Denies injuries from another. Nutritional hb screening: No deficits noted. Tuberculosis screening: No symptoms or risk factors identified. Fall Risk None identified. Assessment: 14:25 General: Appears in no apparent distress. comfortable, uncomfortable, Behavior is calm, jl7 cooperative, appropriate for age. Pain: Complains of pain in anterior aspect of left upper chest Pain radiates to left subscapular area Pain currently is 6 out of 10 on a pain scale. Quality of pain is described as sharp, Pain began 1 hour ago. Is intermittent. Neuro: Level of Consciousness is awake, alert, obeys commands, Oriented to person, place, time, situation. Cardiovascular: Heart tones S1 S2 present Patient's skin is warm and dry. Respiratory: Airway is patent Respiratory effort is even, unlabored, Respiratory pattern is regular, symmetrical, Breath sounds are clear bilaterally. GI: Abdomen is round non-distended, Reports nausea, Patient currently denies diarrhea, vomiting. : No signs and/or symptoms were reported regarding the genitourinary system. Derm: Skin is pink, warm \T\ dry. 15:20 Reassessment: Pt c/o increased substernal chest pain, ERP notified, see MAR for orders. jl7 15:30 Reassessment: Pt refused pain medication at this time. ERP notified, no new orders jl7 received at this time. 19:15 General: Appears in no apparent distress. Behavior is calm, cooperative, appropriate ea for age. Pain: Denies pain. Neuro: Level of Consciousness is awake, alert, obeys commands, Oriented to person, place, time, situation. Cardiovascular: Patient's skin is warm and dry. Respiratory: Airway is patent Respiratory effort is even, unlabored, Respiratory pattern is regular, symmetrical, Breath sounds are clear bilaterally. Derm: Skin is pink, warm \T\ dry. 19:45 Reassessment: Patient and/or family updated on plan of care and expected duration. Pain ea level reassessed. Patient is alert, oriented x 3, equal unlabored respirations, skin warm/dry/pink. Discharge instructions given to patient, verbalized the understanding of instruction. Vital Signs: 13:48 BP 137 / 88; Pulse 84; Resp 16; Temp 97.9; Pulse Ox 100% on R/A; Weight 84.82 kg; hb Height 5 ft. 1 in. (154.94 cm); Pain 6/10; 14:25 BP 129 / 89; Pulse 65; Resp 16 S; Pulse Ox 97% on R/A; jl7 14:55 BP 126 / 79; Pulse 85; Resp 16 S; Pulse Ox 100% on R/A; jl7 15:45 BP 100 / 65; Pulse 89; Resp 16; Pulse Ox 100% on R/A; Pain 9/10; jl7 16:55 BP 110 / 83; Pulse 95; Resp 20; Pulse Ox 100% on R/A; mh5 18:05 BP 106 / 83; Pulse 86; Resp 16; Pulse Ox 99% on R/A; mh5 19:50 BP 108 / 77; Pulse 80; Resp 18; Pulse Ox 99% on R/A; Pain 0/10; ea 13:48 Body Mass Index 35.33 (84.82 kg, 154.94 cm) hb ED Course: 13:41 Patient arrived in ED. mr 13:48 Triage completed. hb 13:49 Arm band placed on left wrist. hb 13:56 Beni Thurman, RN is Primary Nurse. jl7 14:00 EKG done, by diesel truck technician. reviewed by Beni Thurman RN. dt2 14:14 Zach Lorenzo, EFRAÍN is PHCP. pm1 14:15 Davon Robbins MD is Attending Physician. pm1 14:25 Patient has correct armband on for positive identification. Placed in gown. Bed in low jl7 position. Call light in reach. Side rails up X 1. air sampling and monitoring on. Pulse ox on. NIBP on. Warm blanket given. 14:25 Initial lab(s) drawn, by pr, sent to lab. Urine collected: clean catch specimen, clear. jl7 Inserted saline lock: 20 gauge in right antecubital area, using aseptic technique. Blood collected. Patient maintains SpO2 saturation greater than 95% on room air. 14:49 X-ray completed. Portable x-ray completed in exam room. Patient tolerated procedure ml well. 14:57 XRAY Chest (1 view) In Process Unspecified. EDMS 16:04 EKG done, by diesel truck technician. reviewed by Zach Lorenzo NP. dt2 19:39 No provider procedures requiring assistance completed. ea 19:40 IV discontinued, intact, bleeding controlled, No redness/swelling at site. Pressure ea dressing applied. Administered Medications: 15:22 Drug: Zofran 4 mg Route: IVP; Site: right antecubital; jl7 19:16 Follow up: Response: No adverse reaction; Marked relief of symptoms ea 15:23 Not Given (Patient Refused): morphine 4 mg IVP once jl7 18:56 Drug: TORadol 30 mg Route: IVP; Site: right antecubital; jl7 19:45 Follow up: Response: No adverse reaction; Pain is decreased ea Outcome: 19:37 Discharge ordered by . pm1 19:50 Discharged to home ambulatory, with family. ea 19:50 Condition: improved 19:50 Discharge instructions given to patient. 19:50 Instructed on discharge instructions, follow up and referral plans. medication usage, Demonstrated understanding of instructions, follow-up care, medications, Prescriptions given X 2. 19:51 Patient left the ED. law Signatures: Dispatcher [employer] EDMA Madelyn Thomas, Raiza Zach Gonzalez, SCHOOL LIBRARY MEDIA PROGRAM DIRECTOR SCHOOL LIBRARY MEDIA PROGRAM DIRECTOR pm1 Tiara Elizalde RN RN Trinidad Gudino [facility] Beni Thurman RN RN jl7 Consuelo Chan RN RN ea Teague, Danielle dt2 Corrections: (The following items were deleted from the chart) 13:50 13:46 Note EKG paged to triage hb hb
--- NOTE | 2018-01-16 19:38 | EDPHYS ---
Physician Documentation [facility] Name: Eliz Amador Age: 32 yrs Sex: Female : 1985 Arrival Date: 01/16/2018 Time: 13:41 Bed 5 Private MD: ED Physician Davon Robbins HPI: 01/16 16:00 This 32 yrs old Female presents to ER via Ambulatory with complaints of Chest pm1 Pain. 16:00 The patient or guardian reports chest pain that is located primarily in the mid-sternal pm1 area. The pain radiates to left back. Associated signs and symptoms: Pertinent positives: nausea, Pertinent negatives: abdominal pain, cough, dizziness, shortness of breath, vomiting. The chest pain is described as sharp. Duration: The patient or guardian reports a single episode, that is still ongoing, but improving. Modifying factors: The symptoms are alleviated by nothing. the symptoms are aggravated by palpation of area. Severity of pain: in the emergency department the pain has improved. The patient has not experienced similar symptoms in the past. The patient has not recently seen a physician. Onset of pain 1 hour prior to arrival. Patient reports chest pain started while she was driving but got worse when she was shopping at the store shopping. Pain increased with palpation. 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 - Social history:: Smoking status: Patient uses tobacco products. - Ebola Screening: : No symptoms or risks identified at this time. ROS: 16:00 Constitutional: Negative for fever, chills, and weight loss, Eyes: Negative for injury, pm1 pain, redness, and discharge, ENT: Negative for injury, pain, and discharge, Neck: Negative for injury, pain, and swelling, Cardiovascular: Negative for chest pain, palpitations, and edema, Respiratory: Negative for shortness of breath, cough, wheezing, and pleuritic chest pain, Abdomen/GI: Negative for abdominal pain, nausea, vomiting, diarrhea, and constipation, Back: Negative for injury and pain, : Negative for injury, bleeding, discharge, and swelling, MS/Extremity: Negative for injury and deformity, Skin: Negative for injury, rash, and discoloration, Neuro: Negative for headache, weakness, numbness, tingling, and seizure. Exam: 16:00 Constitutional: This is a well developed, well nourished patient who is awake, alert, pm1 and in no acute distress. Head/Face: Normocephalic, atraumatic. Eyes: Pupils equal round and reactive to light, extra-ocular motions intact. Lids and lashes normal. Conjunctiva and sclera are non-icteric and not injected. Cornea within normal limits. Periorbital areas with no swelling, redness, or edema. ENT: Nares patent. No nasal discharge, no septal abnormalities noted. Tympanic membranes are normal and external auditory canals are clear. Oropharynx with no redness, swelling, or masses, exudates, or evidence of obstruction, uvula midline. Mucous membranes moist. Neck: Trachea midline, no thyromegaly or masses palpated, and no cervical lymphadenopathy. Supple, full range of motion without nuchal rigidity, or vertebral point tenderness. No Meningismus. 16:00 Cardiovascular: Regular rate and rhythm with a normal S1 and S2. No gallops, murmurs, or rubs. Normal PMI, no JVD. No pulse deficits. Respiratory: Lungs have equal breath sounds bilaterally, clear to auscultation and percussion. No rales, rhonchi or wheezes noted. No increased work of breathing, no retractions or nasal flaring. Abdomen/GI: Soft, non-tender, with normal bowel sounds. No distension or tympany. No guarding or rebound. No evidence of tenderness throughout. Back: No spinal tenderness. No costovertebral tenderness. Full range of motion. Skin: Warm, dry with normal turgor. Normal color with no rashes, no lesions, and no evidence of cellulitis. MS/ Extremity: Pulses equal, no cyanosis. Neurovascular intact. Full, normal range of motion. 16:00 Chest/axilla: Inspection: normal, Palpation: tenderness, of the mid-sternal area, that totally reproduces the patient's complaints. 16:00 Neuro: Orientation: is normal, Motor: moves all fours. Vital Signs: 13:48 BP 137 / 88; Pulse 84; Resp 16; Temp 97.9; Pulse Ox 100% on R/A; Weight 84.82 kg; hb Height 5 ft. 1 in. (154.94 cm); Pain 6/10; 14:25 BP 129 / 89; Pulse 65; Resp 16 S; Pulse Ox 97% on R/A; jl7 14:55 BP 126 / 79; Pulse 85; Resp 16 S; Pulse Ox 100% on R/A; jl7 15:45 BP 100 / 65; Pulse 89; Resp 16; Pulse Ox 100% on R/A; Pain 9/10; jl7 16:55 BP 110 / 83; Pulse 95; Resp 20; Pulse Ox 100% on R/A; mh5 18:05 BP 106 / 83; Pulse 86; Resp 16; Pulse Ox 99% on R/A; mh5 19:50 BP 108 / 77; Pulse 80; Resp 18; Pulse Ox 99% on R/A; Pain 0/10; ea 13:48 Body Mass Index 35.33 (84.82 kg, 154.94 cm) hb MDM: 14:16 Patient medically screened. pm1 19:30 ED course: two negative troponin greater than 4 hours apart. SHAUN = 0, PERC = 0. pm1 19:36 Data reviewed: vital signs. Data interpreted: Pulse oximetry: on room air is 99 %. pm1 Interpretation: normal. Counseling: I had a detailed discussion with the patient and/or guardian regarding: the historical points, exam findings, and any diagnostic results supporting the discharge/admit diagnosis, lab results, radiology results, the need for outpatient follow up, to return to the emergency department if symptoms worsen or persist or if there are any questions or concerns that arise at home. 01/16 14:28 Order name: Basic Metabolic Panel; Complete Time: 15:52 pm1 01/16 14:28 Order name: CBC with Diff; Complete Time: 15:11 pm1 01/16 14:28 Order name: LFT's; Complete Time: 15:52 pm1 01/16 14:28 Order name: Magnesium; Complete Time: 15:52 pm1 01/16 14:28 Order name: NT PRO-BNP; Complete Time: 15:52 pm1 01/16 14:28 Order name: PT-INR; Complete Time: 15:11 pm1 01/16 14:28 Order name: Troponin (emerg Dept Use Only); Complete Time: 15:52 pm1 01/16 14:28 Order name: XRAY Chest (1 view); Complete Time: 15:11 pm1 01/16 15:02 Order name: Urine Dipstick--Ancillary (enter results) bd 01/16 15:02 Order name: Urine --Ancillary (enter results) bd 01/16 17:49 Order name: Troponin (emerg Dept Use Only): Draw at 1825; Complete Time: 19:25 pm1 01/16 14:28 Order name: EKG; Complete Time: 14:30 pm1 01/16 14:28 Order name: Cardiac monitoring; Complete Time: 14:28 pm1 01/16 14:28 Order name: EKG - Nurse/Tech; Complete Time: 14:28 pm1 01/16 14:28 Order name: IV Saline Lock; Complete Time: 14:28 pm1 01/16 14:28 Order name: Labs collected and sent; Complete Time: 14:28 pm1 01/16 14:28 Order name: O2 Per Protocol; Complete Time: 14:28 pm1 01/16 14:28 Order name: O2 Sat Monitoring; Complete Time: 14:28 pm1 01/16 14:28 Order name: Urine Dipstick-Ancillary (obtain specimen); Complete Time: 14:55 pm1 01/16 14:28 Order name: Urine Test (obtain specimen); Complete Time: 14:55 pm1 01/16 17:20 Order name: EKG Electrocardiogram EDMS Administered Medications: 15:22 Drug: Zofran 4 mg Route: IVP; Site: right antecubital; jl7 19:16 Follow up: Response: No adverse reaction; Marked relief of symptoms ea 15:23 Not Given (Patient Refused): morphine 4 mg IVP once jl7 18:56 Drug: TORadol 30 mg Route: IVP; Site: right antecubital; jl7 19:45 Follow up: Response: No adverse reaction; Pain is decreased ea Disposition: 01/17 00:06 Co-signature as Attending Physician, Davon Robbins MD I agree with the assessment and kdr plan of care. Disposition: 01/16/18 19:37 Discharged to Home. Impression: Chest pain, unspecified. - Condition is Stable. - Discharge Instructions: Nonspecific Chest Pain, Chest Wall Pain. - Prescriptions for Naprosyn 500 mg Oral Tablet - take 1 tablet by ORAL route 2 times per day As needed take with food; 30 tablet. Cyclobenzaprine 10 mg Oral Tablet - take 1 tablet by ORAL route every 8 hours As needed; 30 tablet. - Medication Reconciliation Form, Thank You Letter form. - Follow up: Emergency Department; When: As needed; Reason: Worsening of condition. Follow up: Private Physician; When: 2 - 3 days; Reason: Recheck today's complaints, Continuance of care, Re-evaluation by your physician. - Problem is new. - Symptoms have improved. Signatures: Dispatcher [employer] EDMS Davon Robbins MD MD kdr Marinas, Patrick, NP MOLDER OFFBEARER pm1 Tiara Elizalde RN RN Beni Thurman RN RN jl7 Consuelo Chan RN RN ea Corrections: (The following items were deleted from the chart) 01/16 19:51 19:37 01/16/2018 19:37 Discharged to Home. Impression: Chest pain, unspecified. ea Condition is Stable. Forms are Medication Reconciliation Form, Thank You Letter, Antibiotic Education, Prescription Opioid Use. Follow up: Emergency Department; When: As needed; Reason: Worsening of condition. Follow up: Private Physician; When: 2 - 3 days; Reason: Recheck today's complaints, Continuance of care, Re-evaluation by your physician. Problem is new. Symptoms have improved. pm1
--- NOTE | 2018-01-19 07:17 | EKG ---
Test Date: 2018-01-16 Test Time: 15:30:04 Gearman: DIEGO MEASUREMENT RESULTS: Intervals: Rate: 106 NH: 138 QRSD: 66 QT: 320 QTc: 425 [place]: P: 62 NH: 138 QRS: 68 T: 57 INTERPRETIVE STATEMENTS: Sinus tachycardia Cannot rule out Anterior infarct, age undetermined Abnormal ECG Compared to ECG 01/16/2018 13:51:57 Sinus rhythm no longer present Myocardial infarct finding still present Electronically Signed On 01-19-18 07:11:38 SURGICAL ELASTIC KNITTER HAND FRAME by Jay Garcia
== END 2018-01-16 19:51 | disposition home or self-care (01) ==
LOC: ER 13:38
DX: R07.9 Chest pain, unspecified (principal); R00.0 Tachycardia, unspecified; R94.31 Abnormal electrocardiogram [ECG] [EKG]; Z72.0 Tobacco use
CPT/HCPCS: 36415; 71045; 80048; 80076; 81003; 81025; 83735; 83880; 84484; 85025; 85610; 93005; 96374; 96375; 99285; J2405

== ENCOUNTER 2018-09-11 20:05 | Emergency (ER) | payer SELFPAY ==
--- OUTSIDE RECORDS SUMMARY | 2018-09-11 20:07 | XMS REPORT ---
:1985 [facility] Address [address] John [address] [place] [id number] Care Team Providers Name Role Phone Unavailable Unavailable Unavailable Problems This patient has no known problems. Allergies, Adverse Reactions, Alerts This patient has no known allergies or adverse reactions. Medications This patient has no known medications.
[2018-09-11] MEDS ORDERED: IBUPROFEN 200 MG TAB PO ONE (20:46)
[2018-09-11] MEDS ORDERED: IBUPROFEN 400 MG TAB ONE (20:46)
--- NOTE | 2018-09-11 21:27 | RAD REPORT ---
EXAM DESCRIPTION: US - Extremity Venous Uni Ltd - 09/11/2018 8:41 pm CLINICAL HISTORY: Right leg pain and swelling COMPARISON: None. TECHNIQUE: Real-time sonographic evaluation of the right lower extremity deep venous systems was per formed. FINDINGS: Normal compressibility, flow augmentation, phasic flow and spontaneous flow are identified in the right lower extremity common femoral, superficial femoral, popliteal and posterior tibial vei ns. No intraluminal filling defects seen. IMPRESSION: No DVT in the right lower extremity.
--- NOTE | 2018-09-11 21:29 | RAD REPORT ---
EXAM DESCRIPTION: RAD - Knee Right 3 View - 09/11/2018 9:10 pm CLINICAL HISTORY: Knee pain COMPARISON: None. FINDINGS: No fracture, dislocation or periosteal reaction.No joint effusion seen. No joint space murphy rowing. No foreign body or other soft tissue abnormality. IMPRESSION: Negative right knee. Clinical concerns for internal derangement or occult bony injury could be further assessed with MR im aging.
--- NOTE | 2018-09-11 21:37 | ER ---
Nurse's Notes [facility] Name: Eliz Amador Age: 32 yrs Sex: Female : 1985 Arrival Date: 09/11/2018 Time: 20:14 Bed 30 Private MD: Diagnosis: Pain in right knee Presentation: 09/11 20:17 Presenting complaint: Patient states: "Behind my right knee I felt a pressure and pain jd3 2 days ago. today the pain is starting to come up the leg and shooting pain from the foot up to the hip.". Transition of care: patient was not received from another setting of care. Onset of symptoms was September 09, 2018. Risk Assessment: Do you want to hurt yourself or someone else? Patient reports no desire to harm self or others. Initial Sepsis Screen: Does the patient meet any 2 criteria? No. Patient's initial sepsis screen is negative. Does the patient have a suspected source of infection? No. Patient's initial sepsis screen is negative. Care prior to arrival: None. 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 - Social history:: Smoking status: Patient/guardian denies using tobacco. - Ebola Screening: : Patient negative for fever greater than or equal to 101.5 degrees Fahrenheit, and additional compatible Ebola Virus Disease symptoms. - Family history:: not pertinent. Screenin:41 Abuse screen: Denies threats or abuse. Nutritional screening: On. Tuberculosis la1 screening: No symptoms or risk factors identified. Fall Risk None identified. Assessment: 21:41 General: Appears in no apparent distress. Behavior is. Pain: Complains of pain in right la1 leg and right knee and posterior aspect of right knee. Neuro: Level of Consciousness is awake, alert, obeys commands, Oriented to person, place, time, situation. Cardiovascular: Capillary refill < 3 seconds Patient's skin is warm and dry. Respiratory: Airway is patent Trachea midline Respiratory effort is even, unlabored, Respiratory pattern is regular, symmetrical. GI: No signs and/or symptoms were reported involving the gastrointestinal system. : No signs and/or symptoms were reported regarding the genitourinary system. Vital Signs: 20:20 BP 115 / 72; Pulse 83; Resp 17 S; Temp 98.1(TE); Pulse Ox 100% on R/A; Weight 72.57 kg jd3 (R); Height 5 ft. 0 in. (152.40 cm) (R); Pain 4/10; 20:20 Body Mass Index 31.25 (72.57 kg, 152.40 cm) jd3 ED Course: 20:14 Patient arrived in ED. ag3 20:19 Triage completed. jd3 20:21 Arm band placed on. jd3 20:[address], RN is Primary Nurse. la1 20:25 Aakash Orozco MD is Attending Physician. hieu 20:44 US Extremity Venous Unilateral Ltd In Process Unspecified. EDMS 21:06 Knee Right 3 View XRAY In Process Unspecified. EDMS 21:37 Daniel Cook MD is Referral Physician. hieu 21:42 Call light in reach. Side rails up X 1. la1 22:00 No provider procedures requiring assistance completed. Patient did not have IV access la1 during this emergency room visit. Administered Medications: 20:48 Drug: Motrin 600 mg Route: PO; ca1 Outcome: 21:37 Discharge ordered by . hieu 22:00 Discharged to home ambulatory. la1 22:00 Condition: stable 22:00 Discharge instructions given to patient, Instructed on discharge instructions, follow up and referral plans. medication usage, Demonstrated understanding of instructions, follow-up care, medications, Prescriptions given X 1. 22:00 Patient left the ED. la1 Signatures: Dispatcher [employer] EDSC Aakash Orozco MD MD cha Attema, Lee, RN RN la1 Calderon Adrian RN RN jViridiana Hernadez ag3 Mary Ellen Faust RN RN ca1
--- NOTE | 2018-09-11 21:38 | EDPHYS ---
Physician Documentation [facility] Name: Eliz Amador Age: 32 yrs Sex: Female : 1985 Arrival Date: 09/11/2018 Time: 20:14 Bed 30 Private MD: ED Physician Aakash Orozco HPI: 09/11 20:29 This 32 yrs old Female presents to ER via Ambulatory with complaints of Knee hieu Pain. 20:29 The patient presents with decreased range of motion, pain, swelling, tenderness. The hieu complaints affect the posterior aspect of right knee and right knee. Context: The problem was sustained at an unknown site. Onset: The symptoms/episode began/occurred 3 day(s) ago. Modifying factors: The symptoms are alleviated by remaining still, the symptoms are aggravated by movement. Associated signs and symptoms: The patient has no apparent associated signs or symptoms. The patient has not experienced similar symptoms in the past. 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 - Social history:: Smoking status: Patient/guardian denies using tobacco. - Ebola Screening: : Patient negative for fever greater than or equal to 101.5 degrees Fahrenheit, and additional compatible Ebola Virus Disease symptoms. - Family history:: not pertinent. ROS: 20:29 Constitutional: Negative for fever, chills, and weight loss, Eyes: Negative for injury, hieu pain, redness, and discharge, ENT: Negative for injury, pain, and discharge, Neck: Negative for injury, pain, and swelling, Cardiovascular: Negative for chest pain, palpitations, and edema, Respiratory: Negative for shortness of breath, cough, wheezing, and pleuritic chest pain, Abdomen/GI: Negative for abdominal pain, nausea, vomiting, diarrhea, and constipation, Back: Negative for injury and pain, : Negative for injury, bleeding, discharge, and swelling, Skin: Negative for injury, rash, and discoloration, Neuro: Negative for headache, weakness, numbness, tingling, and seizure, Psych: Negative for depression, anxiety, suicide ideation, homicidal ideation, and hallucinations, Allergy/Immunology: Negative for hives, rash, and allergies, Endocrine: Negative for neck swelling, polydipsia, polyuria, polyphagia, and marked weight changes, Hematologic/Lymphatic: Negative for swollen nodes, abnormal bleeding, and unusual bruising. 20:29 MS/extremity: Positive for decreased range of motion, pain, tenderness, of the posterior aspect of right knee and right knee. Exam: 20:29 Constitutional: This is a well developed, well nourished patient who is awake, alert, hieu and in no acute distress. Head/Face: Normocephalic, atraumatic. Eyes: Pupils equal round and reactive to light, extra-ocular motions intact. Lids and lashes normal. Conjunctiva and sclera are non-icteric and not injected. Cornea within normal limits. Periorbital areas with no swelling, redness, or edema. ENT: Nares patent. No nasal discharge, no septal abnormalities noted. Tympanic membranes are normal and external auditory canals are clear. Oropharynx with no redness, swelling, or masses, exudates, or evidence of obstruction, uvula midline. Mucous membranes moist. Neck: Trachea midline, no thyromegaly or masses palpated, and no cervical lymphadenopathy. Supple, full range of motion without nuchal rigidity, or vertebral point tenderness. No Meningismus. Chest/axilla: Normal chest wall appearance and motion. Nontender with no deformity. No lesions are appreciated. Cardiovascular: Regular rate and rhythm with a normal S1 and S2. No gallops, murmurs, or rubs. Normal PMI, no JVD. No pulse deficits. Respiratory: Lungs have equal breath sounds bilaterally, clear to auscultation and percussion. No rales, rhonchi or wheezes noted. No increased work of breathing, no retractions or nasal flaring. Abdomen/GI: Soft, non-tender, with normal bowel sounds. No distension or tympany. No guarding or rebound. No evidence of tenderness throughout. Back: No spinal tenderness. No costovertebral tenderness. Full range of motion. Skin: Warm, dry with normal turgor. Normal color with no rashes, no lesions, and no evidence of cellulitis. Neuro: Awake and alert, GCS 15, oriented to person, place, time, and situation. Cranial nerves II-XII grossly intact. Motor strength 5/5 in all extremities. Sensory grossly intact. Cerebellar exam normal. Normal gait. Psych: Awake, alert, with orientation to person, place and time. Behavior, mood, and affect are within normal limits. 20:29 Musculoskeletal/extremity: ROM: intact in all extremities, full active range of motion, full passive range of motion, Circulation is intact in all extremities. Sensation intact. Compartment Syndrome exam of affected extremity: is normal. Weight bearing: able to fully bear weight, without difficulty, DVT Exam: no swelling, no tenderness, negative Homans' sign noted on exam, no appreciated bluish discoloration, no erythema, no increased warmth, pain. Vital Signs: 20:20 BP 115 / 72; Pulse 83; Resp 17 S; Temp 98.1(TE); Pulse Ox 100% on R/A; Weight 72.57 kg jd3 (R); Height 5 ft. 0 in. (152.40 cm) (R); Pain 4/10; 20:20 Body Mass Index 31.25 (72.57 kg, 152.40 cm) jd3 MDM: 20:25 Patient medically screened. [facility] 20:31 Data reviewed: vital signs, nurses notes, radiologic studies, doppler, plain films. [facility] 09/11 20:29 Order name: Knee Right 3 View XRAY; Complete Time: 21:37 [facility] 09/11 20:29 Order name: US Extremity Venous Unilateral Ltd; Complete Time: 21:37 [facility] 09/11 20:29 Order name: Gee wrap-joint; Complete Time: 21:45 [facility] Administered Medications: 20:48 Drug: Motrin 600 mg Route: PO; ca1 Disposition: 09/11/18 21:37 Discharged to Home. Impression: Pain in right knee. - Condition is Stable. - Discharge Instructions: Joint Pain, Musculoskeletal Pain, Knee Pain. - Prescriptions for Ibuprofen 600 mg Oral Tablet - take 1 tablet by ORAL route every 6 hours As needed take with food; 20 tablet. - Medication Reconciliation Form, Thank You Letter, Antibiotic Education, Prescription Opioid Use form. - Follow up: Private Physician; When: 2 - 3 days; Reason: Recheck today's complaints, Continuance of care, Re-evaluation by your physician. Follow up: Dr. Daniel Cook; When: 2 - 3 days; Reason: Recheck today's complaints, Continuance of care, Re-evaluation by your physician. - Problem is new. - Symptoms are resolved. Signatures: Dispatcher [employer] Aakash Jung MD MD cha Attema, Lee RN RN la1 NguyễnCalderon RN RN jd3 Mary Ellen Faust RN RN ca1 Corrections: (The following items were deleted from the chart) 22:00 21:37 09/11/2018 21:37 Discharged to Home. Impression: Pain in right knee. Condition is la1 Stable. Discharge Instructions: Joint Pain, Musculoskeletal Pain, Knee Pain. Prescriptions for Ibuprofen 600 mg Oral Tablet - take 1 tablet by ORAL route every 6 hours As needed take with food; 20 tablet. and Forms are Medication Reconciliation Form, Thank You Letter, Antibiotic Education, Prescription Opioid Use. Follow up: Private Physician; When: 2 - 3 days; Reason: Recheck today's complaints, Continuance of care, Re-evaluation by your physician. Follow up: Dr. Daniel Cook; When: 2 - 3 days; Reason: Recheck today's complaints, Continuance of care, Re-evaluation by your physician. Problem is new. Symptoms are resolved. hieu
== END 2018-09-11 22:00 | disposition home or self-care (01) ==
LOC: ER 20:05
DX: M25.561 Pain in right knee (principal); J45.909 Unspecified asthma, uncomplicated
CPT/HCPCS: 93971; 99283